=== PATIENT | male | born 1995 | race American Indian/Alaskan Native ===

== ENCOUNTER 2016-09-03 23:20 | Emergency (ER) | payer BC, MEDICAID ==
[2016-09-03 23:31] VITALS: BP 135/82; PULSE 74; RESP 18; TEMP 98; O2SAT 100
--- NOTE | 2016-09-04 01:32 | ED PDOC ---
HPI: Male Pain Chief Complaint (Provider): My girlfriend has Chlamydia History Per: Patient History/Exam Limitations: no limitations Onset/Duration Of Symptoms: Other (Patient asymptomatic) Current Symptoms Are (Timing): Other (None) Pain Scale Rating Of: 0 Associated Symptoms: denies: Fever, Chills, Nausea, Vomiting, Diarrhea, Loss Of Appetite, Back Pain, Chest Pain, Constipation, Urinary Symptoms Additional Complaint(s): Pt. here today complaining of exposure to chlamydia. Pt. reports his girfriend called him and told him that she has chlaymdia and that he should get him self tested. Pt. reports no complaints at this time and states would like to get check out. Pt. states [facility] but has not seen him over 1 year. On ROS , pt. denies any dysuria, hematuria, flank pain, fever, chills, N/V/D/F/C, swelling, testicular pain, chest pain, shortness of breath. Pt. does report to having 3 female sexual partners over the course of 6 months and does not use condoms. <Gaetano Thomas - Last Filed: 09/04/16 01:48> <Zari Sahu - Last Filed: 09/04/16 03:22> Time Seen by Provider: 09/04/16 01:01 Chief Complaint (Nursing): Male Genitourinary Supervising Attending Note - Supervising Attending Note The Documented history was done by the: Physician Numerologist, Attending Physician The documented physical exam was done by the: Physician Numerologist, Attending Physician The documented procedures were done by the: Physician Numerologist, Attending Physician - Attestation: I have personally seen and examined this patient.: Yes I have fully participated in the care of the patient.: Yes I have reviewed all pertinent clinical information, including history, physical exam and plan: Yes <Zari Sahu - Last Filed: 09/04/16 03:22> Past Medical History Vital Signs: Last Vital Signs Temp 98 F 09/03/16 23:28 Pulse 74 09/03/16 23:28 Resp 18 09/03/16 23:28 BP 135/82 09/03/16 23:28 Pulse Ox 100 09/03/16 23:28 - Medical History PMH: No Chronic Diseases - Surgical History Surgical History: No Surg Hx - Family History Family History: States: Unknown Family Hx - Living Arrangements Living Arrangements: With Family - Social History Current smoker - smoking cessation education provided: No Alcohol: None Drugs: Denies <Gaetano Thomas - Last Filed: 09/04/16 01:48> Vital Signs: Last Vital Signs Temp 98 F 09/03/16 23:28 Pulse 74 09/03/16 23:28 Resp 18 09/03/16 23:28 BP 135/82 09/03/16 23:28 Pulse Ox 100 09/04/16 01:48 <Maria AntoniaZari musa Ruel - Last Filed: 09/04/16 03:22> - Home Medications Home Medications: Ambulatory Orders Medication Instructions Recorded Ibuprofen 600 mg PO Q6H PRN #15 tab 01/02/15 - Allergies Allergies/Adverse Reactions: Allergies Allergy/AdvReac Type Severity Reaction Status Date / Time No Known Allergies Allergy Verified 01/02/15 20:30 Review of Systems Constitutional: Negative for: Fever, Chills, Sweats Eyes: Negative for: Pain, Vision Change, Conjunctivae Inflammation ENT: Negative for: Ear Pain, Ear Discharge, Nose Pain, Nose Discharge Cardiovascular: Negative for: Chest Pain, Palpitations, Orthopnea, Paroxysmal Noc. Dyspnea Respiratory: Negative for: Cough, Shortness of Breath, Hemoptysis Gastrointestinal: Negative for: Nausea, Vomiting, Abdominal Pain, Diarrhea Genitourinary Male: Negative for: Dysuria, Frequency, Incontinence, Hematuria, Penile Discharge, Scrotal Pain, Rash Musculoskeletal: Negative for: Neck Pain, Shoulder Pain, Arm Pain Skin: Negative for: Rash, Lesions Neurological: Negative for: Weakness, Numbness, Incoordination, Change in Speech Psych: Negative for: Anxiety, Depression <Juany Thomasf - Last Filed: 09/04/16 01:48> Physical Exam - Reviewed Vital Signs Reviewed: Yes - Physical Exam Appears: Positive for: Well, Non-toxic, No Acute Distress Head Exam: Positive for: ATRAUMATIC, NORMOCEPHALIC Skin: Positive for: Normal Color, Warm, Dry ENT: Positive for: Normal ENT Inspection. Negative for: Nasal Congestion, Pharyngeal Erythema, Tonsillar Exudate, Tonsillar Swelling Neck: Positive for: Normal, Painless ROM, Supple Cardiovascular/Chest: Positive for: Regular Rate, Rhythm. Negative for: Murmur Respiratory: Positive for: Normal Breath Sounds. Negative for: Decreased Breath Sounds, Wheezing, Respiratory Distress Gastrointestinal/Abdominal: Positive for: Soft. Negative for: Tenderness Back: Negative for: L CVA Tenderness, R CVA Tenderness Extremity: Negative for: Tenderness, Pedal Edema <Gaetano Thomas - Last Filed: 09/04/16 01:48> - ECG O2 Sat by Pulse Oximetry: 100 <Gaetano Thomas - Last Filed: 09/04/16 01:48> Medical Decision Making Medical Decision Making: Pt. is a 21 y.o. male with no significant PMHx/PSHx with multiple sexual partners not using condoms having been exposed to an STI namely Chalmydia as per his conversation with his girlfriend. Pt. currently without symptoms to follow up with his PMD as an outpatient. <Gaetano Thomas - Last Filed: 09/04/16 01:48> Disposition - Patient ED Disposition Is Patient to be Admitted: No Discussed With : Zari Sahu - Disposition Disposition: Routine/Home Disposition Time: 01:15 <Gaetano Thomas - Last Filed: 09/04/16 01:48> <Zari Sahu - Last Filed: 09/04/16 03:22> - Clinical Impression Clinical Impression: Exposure to STD - Disposition Referrals: formerly [facility] [Outside] Condition: GOOD Additional Instructions: Follow up with your PCP for STD check in 2-3 days. Instructions: Sexually Transmitted Diseases (ED), Safe Sex (ED)
== END 2016-09-04 01:37 | disposition home or self-care (01) ==
LOC: H.ER 23:20
DX: Z20.2 Contact with and (suspected) exposure to infections with a predominantly sexual mode of transmission (principal)